=== PATIENT | male | born 1940 | race Asian ===

== ENCOUNTER 2018-07-16 03:54 | Observation (INO) | payer OTHER ==
[2018-07-16 04:11] LABS: ADD MAN DIFF? NO
[2018-07-16 04:29] LABS: BASOPHILS % 0.5 % (0.0-2.0); EOSINOPHILS # 0.1 10^3/ul (0.0-0.5); EOSINOPHILS % 1.6 % (0.0-7.0); HEMATOCRIT 35.5 % (42.0-52.0); HEMOGLOBIN 11.8 g/dl (14.0-18.0); LYMPHOCYTES # 1.9 10^3/ul (0.8-2.9); LYMPHOCYTES % 26.4 % (15.0-51.0); MEAN CORPUSCULAR HEMOGLOBIN 25.8 pg (29.0-33.0); MEAN CORPUSCULAR HGB CONC 33.2 g/dl (32.0-37.0); MEAN CORPUSCULAR VOLUME 77.5 fl (82.0-101.0); MEAN PLATELET VOLUME 11.4 fl (7.4-10.4); MONOCYTE # 0.5 10^3/ul (0.3-0.9); MONOCYTES % 6.1 % (0.0-11.0); NEUTROPHIL # 4.8 10^3/ul (1.6-7.5); NEUTROPHILS % 65.1 % (39.0-77.0); PLATELET COUNT 248 10^3/UL (140-415); RED BLOOD COUNT 4.58 10^6/ul (4.70-6.10); RED CELL DISTRIBUTION WIDTH 13.5 % (11.5-14.5)
[2018-07-16 04:29] LABS: WHITE BLOOD COUNT 7.3 10^3/ul (4.8-10.8)
[2018-07-16 04:38] LABS: ANION GAP 9 (5-13); BLOOD UREA NITROGEN 18 mg/dl (7-20); CALCIUM 9.9 mg/dl (8.4-10.2); CARBON DIOXIDE 25 mmol/L (21-31); CHLORIDE 102 mmol/L (97-110); CREATININE 1.14 mg/dl (0.61-1.24); GLUCOSE 108 mg/dl (70-220); POTASSIUM 4.4 mmol/L (3.5-5.1); SODIUM 136 mmol/L (135-144)
[2018-07-16 04:50] LABS: TROPONIN-I < 0.012 ng/ml (0.000-0.120)
[2018-07-16] MEDS ORDERED: NITROGLYCERIN (SL) 0.4 MG TAB SL (06:00)
[2018-07-16] MEDS ORDERED: DOCUSATE SODIUM 100 MG CAP PO (06:00)
[2018-07-16] MEDS ORDERED: NACL 0.9% 3 ML SYG IV (06:00)
[2018-07-16] MEDS ORDERED: morphine 2 MG INJ IV (06:00)
[2018-07-16] MEDS ORDERED: ONDANSETRON 4 MG INJ IV ×2 (06:00)
[2018-07-16] MEDS ORDERED: BISACODYL (EC) 5 MG TAB PO (06:00)
[2018-07-16] MEDS ORDERED: ACETAMINOPHEN 325 MG TAB PO ×2 (06:00)
[2018-07-16 08:04] LABS: IRON 51 ug/dl (35-150)
[2018-07-16 08:13] LABS: % IRON SATURATION 15 % SAT (22-52); TOTAL IRON BINDING CAPACITY 330 ug/dl (241-421)
[2018-07-16 08:40] LABS: FERRITIN 68.3 ng/ml (11.1-264.0)
[2018-07-16 10:48] LABS: CREATINE KINASE 134 IU/L (23-200)
[2018-07-16 11:00] LABS: CK INDEX 1.5; CK-MB 1.97 ng/ml (0.0-2.4); TROPONIN-I < 0.012 ng/ml (0.000-0.120)
[2018-07-16] MEDS ORDERED: KETOROLAC 30 MG INJ IV (12:30)
[2018-07-16 16:20] LABS: CREATINE KINASE 125 IU/L (23-200)
[2018-07-16 16:33] LABS: CK INDEX 1.5; CK-MB 1.87 ng/ml (0.0-2.4); TROPONIN-I < 0.012 ng/ml (0.000-0.120)
[2018-07-17 07:12] LABS: ADD MAN DIFF? NO
[2018-07-17 07:19] LABS: WHITE BLOOD COUNT 5.8 10^3/ul (4.8-10.8)
[2018-07-17 07:19] LABS: BASOPHILS % 0.7 % (0.0-2.0); EOSINOPHILS # 0.4 10^3/ul (0.0-0.5); EOSINOPHILS % 6.7 % (0.0-7.0); HEMATOCRIT 39.8 % (42.0-52.0); LYMPHOCYTES % 33.9 % (15.0-51.0); MEAN CORPUSCULAR HGB CONC 32.7 g/dl (32.0-37.0); MEAN CORPUSCULAR VOLUME 79.6 fl (82.0-101.0); MEAN PLATELET VOLUME 11.1 fl (7.4-10.4); MONOCYTE # 0.5 10^3/ul (0.3-0.9); MONOCYTES % 9.1 % (0.0-11.0); NEUTROPHIL # 2.9 10^3/ul (1.6-7.5); NEUTROPHILS % 49.3 % (39.0-77.0); PLATELET COUNT 244 10^3/UL (140-415); RED CELL DISTRIBUTION WIDTH 13.8 % (11.5-14.5)
[2018-07-17 07:55] LABS: PHOSPHORUS 3.7 mg/dl (2.5-4.9)
[2018-07-17 07:55] LABS: MAGNESIUM 2.1 mg/dl (1.7-2.5)
[2018-07-17 07:57] LABS: ALANINE AMINOTRANSFERASE 11 IU/L (13-69); ALBUMIN 4.2 g/dl (3.3-4.9); ALBUMIN/GLOBULIN RATIO 1.44; ALKALINE PHOSPHATASE 104 IU/L (42-121); ANION GAP 10 (5-13); ASPARTATE AMINO TRANSFERASE 28 IU/L (15-46); BILIRUBIN,INDIRECT 0.5 mg/dl (0-1.1); BILIRUBIN,TOTAL 0.5 mg/dl (0.2-1.3); BLOOD UREA NITROGEN 16 mg/dl (7-20); CALCIUM 9.3 mg/dl (8.4-10.2); CARBON DIOXIDE 28 mmol/L (21-31); CHLORIDE 100 mmol/L (97-110); CHOLESTEROL 191 mg/dl (100-200); CREATININE 1.17 mg/dl (0.61-1.24); GLUCOSE 86 mg/dl (70-220); HDL CHOLESTEROL 38 mg/dl (31-75); LDL CHOLESTEROL,CALCULATED 134 mg/dl; POTASSIUM 4.9 mmol/L (3.5-5.1); SODIUM 138 mmol/L (135-144); TOTAL PROTEIN 7.1 g/dl (6.1-8.1); TRIGLYCERIDES 93 mg/dl (0-149)
[2018-07-17 08:04] LABS: TROPONIN-I < 0.012 ng/ml (0.000-0.120)
[2018-07-17 08:24] LABS: THYROID STIMULATING HORMONE 0.374 MIU/L (0.465-4.680)
[2018-07-17 08:48] LABS: HEMOGLOBIN A1C 5.3 % (0-5.9)
== END 2018-07-17 10:24 | disposition home or self-care (01) ==
LOC: E/R 03:54 → TEL 05:51
PROVIDERS: Family Medicine
DX: R07.89 Other chest pain (principal); J45.909 Unspecified asthma, uncomplicated; D50.9 Iron deficiency anemia, unspecified
CPT/HCPCS: 36415; 71045; 80048; 80053; 80061; 82550; 82553; 82728; 83036; 83540; 83735; 84100; 84443; 84484; 85025; 93005; 93306; 99285-25; G0378